=== PATIENT | male | born 1965 | race Caucasian/White ===

== ENCOUNTER 2018-12-18 19:08 | Emergency (ER) | payer SELFPAY ==
[~2018-12-18] VITALS: Ht 170.2 cm; Wt 63.5 kg
[2018-12-18] MEDS ORDERED: SODIUM CHLORIDE 0.9% 1,000 ML IVB ONE (20:41)
[2018-12-18 21:33] LABS: Basophils # (auto) 0.1 uL; Basophils % (auto) 1.3 % (0.0-2.0); Eosinophils # (auto) 0.3 uL; Eosinophils % (auto) 5.7 % (0.0-7.0); Hematocrit 33.6 % (41.0-53.0); Hemoglobin 11.5 g/dL (13.5-17.5); Lymphocytes # (auto) 2.3 uL; Lymphocytes % (auto) 44.8 % (10.0-50.0); Mean Corpuscular Hemoglobin 30.7 pg (28.0-32.0); Mean Corpuscular Hgb Conc. 34.1 g/dL (32.0-36.0); Mean Corpuscular Volume 89.8 fL (80.0-100.0); Monocytes # (auto) 0.3 uL; Monocytes % (auto) 6.9 % (0.0-12.0); Neutrophils # (auto) 2.1 uL; Neutrophils % (auto) 41.3 % (37.0-80.0); Nucleated Red Blood Cells % 0.1 %; Platelet Count (auto) 243 10^3/uL (140-450); Red Blood Cells 3.74 10^6/uL (4.5-5.90); Red Cell Distribution Width 14.1 % (11.8-14.3)
[2018-12-18 21:51] LABS: Chloride 106 mmol/L (98-107); Potassium 3.6 mmol/L (3.5-5.1); Sodium 140 mmol/L (136-145)
[2018-12-18 21:56] LABS: Partial Thromboplastin Time 28.9 sec (23.64-32.05)
[2018-12-18 22:00] LABS: Alanine Aminotransferase 53 U/L (16-61); Albumin 3.4 g/dL (3.4-5.0); Alkaline Phosphatase 43 U/L (45-117); Anion Gap 8 (5-15); Aspartate Aminotransferase 41 U/L (15-37); BUN/Creatinine Ratio 17.1; Bilirubin, Total 0.5 mg/dL (0.2-1.0); Blood Urea Nitrogen 19 mg/dL (7-18); Calcium 7.7 mg/dL (8.5-10.1); Carbon Dioxide 26 mmol/L (21-32); GFR African American 90 mL/min; GFR Non-African American 74 mL/min; Glucose 88 mg/dL (74-106)
[2018-12-18] MEDS ORDERED: cefTRIAXone SOD 1,000 MG VL IM ONE (22:15)
[2018-12-18 22:32] LABS: Salicylate 2.8 mg/dL (2.8-20.0)
[2018-12-18 22:35] LABS: Acetaminophen 2.3 ug/mL (10-30)
[2018-12-19 08:02] LABS: Urine Bacteria NONE SEEN /hpf (None Seen); Urine Blood Negative /uL (Negative); Urine Specific Gravity 1.011 (1.001-1.035); Urine WBC <1 /hpf (0 - 3)
[2018-12-19 08:19] LABS: Alcohol, Urine < 3.0 mg/dL (0-5); Amphetamine Screen, Urine NEGATIVE (NEGATIVE); Barbiturate Scree,Urine NEGATIVE (NEGATIVE); Benzodiazephine Screen, Urine NEGATIVE (NEGATIVE); Cannabinoid Screen, Urine POSITIVE (NEGATIVE); Cocaine Screen, Urine NEGATIVE (NEGATIVE); Opiate Scree,Urine NEGATIVE (NEGATIVE); Phencyclidine Screen, Urine NEGATIVE (NEGATIVE)
[2018-12-19 08:21] LABS: Cholesterol 177 mg/dL (< 200)
[2018-12-19 08:23] LABS: HDL Cholesterol 47 mg/dL (40-59); LDL Cholesterol 118 mg/dL (< 100); Triglycerides 165 mg/dL (< 150)
[2018-12-19] MEDS: OLANZapine 5 MG TAB PO PRN ×2 (11:27→20:33)
[2018-12-19] MEDS ORDERED: LEVOTHYROXINE SODIUM 100 MCG TAB PO ONE (11:30)
[2018-12-19 12:25] VITALS: BP 105/78
[2018-12-19] MEDS ORDERED: FLUT1SPR5 (21:10)
[2018-12-19] MEDS ORDERED: HYDR12.56 PO (21:18)
[2018-12-19] MEDS ORDERED: ASPI81TA27 PO (21:18)
[2018-12-19] MEDS ORDERED: ATEN-60 PO (21:18)
[2018-12-19] MEDS ORDERED: IBUP600T27 PO (21:18)
[2018-12-19] MEDS ORDERED: ATOR10TA52 PO (21:18)
[2018-12-19] MEDS ORDERED: ASCO500C49 PO (21:18)
[2018-12-19] MEDS ORDERED: MULTTAB OR (21:18)
[2018-12-19] MEDS ORDERED: OMEG100078 PO (21:18)
[2018-12-19] MEDS ORDERED: CYA100I IM (21:18)
[2018-12-19] MEDS ORDERED: FERR18TA PO (21:18)
[2018-12-19] MEDS ORDERED: LATA0.0015 EACHEYE (21:18)
[2018-12-19] MEDS ORDERED: LOSA25TA40 PO (21:18)
[2018-12-20] MEDS ORDERED: LORazepam 2MG/ML-1ML VIAL IM ONE ×3 (04:30→14:45)
[2018-12-20] MEDS ORDERED: HALOPERIDOL LACTATE 5 MG/ML INJ VIAL ONE ×2 (05:36→14:44)
[2018-12-20] MEDS ORDERED: HALOPERIDOL LACTATE 5 MG/ML INJ VIAL IM ONE ×2 (05:45→14:45)
[2018-12-20] MEDS: OLANZapine 5 MG TAB PO PRN ×2 (10:52→23:49)
[2018-12-20] MEDS ORDERED: diphenhdrAMINE HCL 50 MG/1 ML VL ONE (14:44)
[2018-12-20] MEDS ORDERED: LORazepam 2MG/ML-1ML VIAL ONE (14:44)
[2018-12-20] MEDS ORDERED: diphenhdrAMINE HCL 50 MG/1 ML VL IM ONE (14:45)
[2018-12-21] MEDS ORDERED: LORazepam 2MG/ML-1ML VIAL IM ONE (03:30)
[2018-12-21] MEDS ORDERED: HALOPERIDOL LACTATE 5 MG/ML INJ VIAL IM ONE (03:30)
[2018-12-21] MEDS ORDERED: LORazepam 0.5 MG TAB PO ONE (08:30)
[2018-12-21] MEDS ORDERED: OLANZapine 5 MG TAB PO ONE (08:30)
== END 2018-12-21 10:05 | disposition left against medical advice (07) ==
LOC: ER 19:08
DX: K40.90 Unilateral inguinal hernia, without obstruction or gangrene, not specified as recurrent (principal); F23 Brief psychotic disorder; F32.9 Major depressive disorder, single episode, unspecified; F41.9 Anxiety disorder, unspecified; Z88.2 Allergy status to sulfonamides; Z88.8 Allergy status to other drugs, medicaments and biological substances
CPT/HCPCS: 36415; 71045; 74176; 80053; 80061; 80307; 80320; 80329; 81001; 83036; 83735; 84443; 84484; 85025; 85610; 85730; 94761; 96372; 99285; J0696